=== PATIENT | female | born 1970 | race Caucasian/White ===

== ENCOUNTER 2017-03-21 07:14 | Emergency (ER) | payer MEDICAID ==
[~2017-03-21] VITALS: Ht 154.9 cm; Wt 73.0 kg
[2017-03-21] MEDS ORDERED: ONDANSETRON 4MG ODT PO STA (08:10)
[2017-03-21] MEDS ORDERED: SODIUM CHLORIDE 0.9% 1,000 ML IV ONE (08:10)
[2017-03-21] MEDS ORDERED: MECLIZINE 25MG TABLET PO ONE (08:15)
[2017-03-21 08:35] LABS: BASOPHILS % 0.9 % (0.0-2.0); EOSINOPHILS % 1.6 % (0.0-5.0); HEMATOCRIT. 35.3 % (36.0-48.0); HEMOGLOBIN. 11.7 g/dL (12.0-16.0); LYMPHOCYTES % 21.6 % (20.0-50.0); MEAN CORPUSCULAR HEMOGLOBIN 27.2 pg (28.0-32.0); MEAN CORPUSCULAR VOLUME 82.3 fL (81.0-99.0); MEAN PLATELET VOLUME 8.9 fl (7.4-10.4); MONOCYTES % 3.6 % (2.0-8.0); NEUTROPHILS % 72.3 % (40.0-76.0); PLATELET 232 x1000/uL (130-400); RED BLOOD CELL COUNT 4.29 mill/uL (4.2-5.4); RED CELL DISTRIBUTION WIDTH 13.3 % (11.6-14.6)
[2017-03-21 08:38] LABS: INR 1.1
[2017-03-21 08:48] LABS: CARBON DIOXIDE 25 mEq/L (21-32); CHLORIDE 106 mEq/L (98-107); ETHANOL BLOOD < 10 mg/dL; TROPONIN I < 0.02 ng/mL (0.00-0.04)
[2017-03-21 10:20] VITALS: BP 120/68
== END 2017-03-21 10:40 | disposition home or self-care (01) ==
LOC: ER 07:32
DX: R42 Dizziness and giddiness (principal); R00.1 Bradycardia, unspecified
CPT/HCPCS: 36415; 70450; 80053; 83690; 83880; 84484; 85025; 85610; 93005; 96360; 96361; 99285; G0482; J7030; Q0162; J8597

== ENCOUNTER 2019-04-03 06:49 | Emergency (ER) | payer MEDICAID, OTHER ==
[~2019-04-03] VITALS: Ht 157.5 cm; Wt 79.0 kg
[2019-04-03] MEDS ORDERED: ONDANSETRON HCL 4MG/2ML INJ IV STA (08:17)
[2019-04-03] MEDS ORDERED: MORPHINE SULFATE 4 MG/ML CPJ (NOT FOR IM USE) IV STA (08:17)
[2019-04-03 09:00] LABS: BASOPHILS % 0.5 % (0.0-2.0); EOSINOPHILS % 0.8 % (0.0-5.0); HEMATOCRIT. 37.9 % (36.0-48.0); LYMPHOCYTES % 15.2 % (20.0-50.0); MEAN CORPUSCULAR HEMOGLOBIN 27.1 pg (28.0-32.0); MEAN CORPUSCULAR VOLUME 85.5 fL (81.0-99.0); MEAN PLATELET VOLUME 8.8 fl (7.4-10.4); MONOCYTES % 2.8 % (2.0-8.0); NEUTROPHILS % 80.7 % (40.0-76.0); PLATELET 244 x1000/uL (130-400); RED BLOOD CELL COUNT 4.43 mill/uL (4.2-5.4); RED CELL DISTRIBUTION WIDTH 13.6 % (11.6-14.6)
[2019-04-03 09:07] LABS: CHLORIDE 109 mEq/L (98-107)
[2019-04-03 09:19] LABS: HCG SCREEN NEGATIVE
[2019-04-03] MEDS ORDERED: PROCHLORPERAZINE 10MG/2ML VIAL IV PRN (11:00)
[2019-04-03] MEDS ORDERED: LEVETIRACETAM 500MG PREMIX 200 ML IV ONE (11:15)
[2019-04-03] MEDS ORDERED: MANNITOL 20% (20GM/100ML) BAG 500ML PREMIX IV ONE (11:15)
[2019-04-03 11:30] VITALS: BP 117/72
[2019-04-03] MEDS ORDERED: DEXAMETHASONE 10 MG/ML VIAL IV NR (11:30)
[2019-04-03] MEDS ORDERED: MANNITOL 20% 500 ML IV SCH (11:45)
== END 2019-04-03 13:26 | disposition short-term general hospital (02) ==
LOC: ER 06:49
DX: I60.9 Nontraumatic subarachnoid hemorrhage, unspecified (principal); I51.7 Cardiomegaly
CPT/HCPCS: 36415; 70450; 70496; 70498; 71045; 80053; 83690; 83880; 84484; 84703; 85025; 85610; 93005; 96365; 96368; 96375; 99291; J1100; J1953; J2270; J2405